=== PATIENT | male | born 1965 | race Caucasian/White ===

== ENCOUNTER 2020-10-15 02:56 | Inpatient (IN) | payer BC, OTHER ==
[2020-10-15] VITALS (7 sets, daily range): BP systolic 143–173; BP diastolic 81–102
[~2020-10-15] VITALS: Ht 182.9 cm; Wt 120.2 kg
--- NOTE | 2020-10-15 03:28 | NUR ---
both IVs were placed at an outside hospital
[2020-10-15] MEDS ORDERED: SODIUM CHLORIDE FLUSH 10ML SYR IVF ONE (03:30)
[2020-10-15 03:35] LABS: BASOPHILS % (AUTO) 1 % (0-1); EOSINOPHILS % (AUTO) 7 % (1-7); LYMPHOCYTES % (AUTO) 27 % (22-44); MEAN CORPUSCULAR HEMOGLOBIN 31.2 pg (27.5-34.5); MEAN CORPUSCULAR HGB CONC 35.5 g/dL (33.2-36.2); MEAN PLATELET VOLUME 8.5 fL (7.4-10.4); MONOCYTES % (AUTO) 8 % (2-9); NEUTROPHILS % (AUTO) 57 % (42-75); PLATELET COUNT 174 x10^3/uL (130-400); RED BLOOD COUNT 5.11 x10^6/uL (4.38-5.82); RED CELL DISTRIBUTION WIDTH 14.2 % (9.4-14.8)
[2020-10-15 03:42] LABS: ALBUMIN 3.5 g/dL (3.4-5.0); ANION GAP 5 mmol/L (5-15); CALCIUM 9.1 mg/dL (8.5-10.1); CHLORIDE 103 mmol/L (98-107); CREATININE 0.86 mg/dL (0.7-1.3)
[2020-10-15 03:44] LABS: INTERNATIONAL NORMALIZED RATIO 0.97 (0.93-1.1); PROTHROMBIN TIME 10.4 Seconds (9.6-11.5)
[2020-10-15] MEDS ORDERED: ONDANSETRON 2MG/ML, 2ML IVPush PRN (04:30)
[2020-10-15] MEDS ORDERED: SODIUM CHLORIDE 0.9% 1,000 ML IV SCH (04:30)
[2020-10-15] MEDS ORDERED: ACETAMINOPHEN 325 MG TABLET PO PRN (04:30)
[2020-10-15] MEDS ORDERED: DOCUSATE 100 MG CAPSULE PO PRN (04:30)
[2020-10-15] MEDS ORDERED: morphine SULFATE 10 MG/ML, 1ML IVPush PRN (04:30)
[2020-10-15] MEDS ORDERED: OXYcodone IR 5MG TABLET PO PRN (04:30)
[2020-10-15] MEDS ORDERED: ZOLPIDEM 5MG TABLET PO PRN (04:30)
[2020-10-15] MEDS ORDERED: GUAIFENESIN/DM 200-20MG, 10ML UDC PO PRN (04:30)
[2020-10-15] MEDS ORDERED: ENALAPRILAT 1.25 MG/ML, 2ML IVPush PRN (04:30)
[2020-10-15] MEDS ORDERED: METHOCARBAMOL 500 MG TABLET PO PRN (04:30)
[2020-10-15] MEDS: ASPIRIN 81 MG TABLET EC PO SCH (05:23)
[2020-10-15 07:28] LABS: CHOL/HDL RATIO 3.2; LDL/HDL RATIO 1.7 (0.5-3.0)
[2020-10-15] MEDS: ALLOPURINOL 100 MG TABLET PO SCH (08:36)
[2020-10-15] MEDS: CLOPIDOGREL 75 MG TABLET PO SCH (08:36)
[2020-10-15] MEDS: metFORMIN 500 MG TABLET PO SCH ×2 (08:36→17:00)
[2020-10-15] MEDS: INSULIN REGULAR 100 UNITS/ML, 3ML VIAL SQ-INSULIN SCH ×4 (08:38→20:02)
[2020-10-15] MEDS: INSULIN GLARGINE 100 UNITS/ML, PEN SQ-INSULIN SCH ×2 (08:38→20:02)
[2020-10-15] MEDS ORDERED: GADOTERATE 10 MMOL/20ML SYR ONE (16:29)
[2020-10-15] MEDS ORDERED: ATORVASTATIN 80 MG TABLET PO SCH (21:00)
[2020-10-16 00:18] VITALS: BP 163/89
[2020-10-16 04:00] VITALS: BP 158/86
[2020-10-16] MEDS: ASPIRIN 81 MG TABLET EC PO SCH (05:22)
[2020-10-16 06:21] LABS: CHLORIDE 106 mmol/L (98-107)
[2020-10-16 06:22] LABS: BASOPHILS % (AUTO) 1 % (0-1); EOSINOPHILS % (AUTO) 6 % (1-7); LYMPHOCYTES % (AUTO) 27 % (22-44); MEAN CORPUSCULAR HEMOGLOBIN 30.9 pg (27.5-34.5); MEAN CORPUSCULAR HGB CONC 35.1 g/dL (33.2-36.2); MEAN PLATELET VOLUME 8.6 fL (7.4-10.4); MONOCYTES % (AUTO) 7 % (2-9); NEUTROPHILS % (AUTO) 59 % (42-75); PLATELET COUNT 191 x10^3/uL (130-400); RED BLOOD COUNT 5.14 x10^6/uL (4.38-5.82); RED CELL DISTRIBUTION WIDTH 14.3 % (9.4-14.8)
[2020-10-16 06:24] LABS: ANION GAP 8 mmol/L (5-15); CREATININE 0.77 mg/dL (0.7-1.3)
[2020-10-16] MEDS: INSULIN REGULAR 100 UNITS/ML, 3ML VIAL SQ-INSULIN SCH ×3 (07:45→16:05)
[2020-10-16] MEDS: metFORMIN 500 MG TABLET PO SCH ×2 (07:57→16:05)
[2020-10-16] MEDS: CLOPIDOGREL 75 MG TABLET PO SCH (07:57)
[2020-10-16] MEDS: ALLOPURINOL 100 MG TABLET PO SCH (07:57)
[2020-10-16] MEDS: INSULIN GLARGINE 100 UNITS/ML, PEN SQ-INSULIN SCH (07:58)
[2020-10-16 08:14] VITALS: BP 148/91
[2020-10-16] MEDS ORDERED: ATENOLOL 25 MG TABLET PO SCH (10:00)
[2020-10-16] MEDS ORDERED: LISINOPRIL 10 MG TABLET PO SCH (10:00)
[2020-10-16] MEDS ORDERED: OMNIPAQUE 350 MG/ML, 75ML BOTTLE ONE (10:20)
[2020-10-16] MEDS ORDERED: SITA100T PO (12:17)
[2020-10-16] MEDS ORDERED: ATOR40TA78 PO (12:17)
[2020-10-16] MEDS ORDERED: LISI20TA21 PO (12:17)
[2020-10-16] MEDS ORDERED: ATEN25TA PO (12:17)
[2020-10-16] MEDS ORDERED: ALLO300T PO (12:17)
[2020-10-16] MEDS ORDERED: INSU300I SQ-INSULIN (12:17)
[2020-10-16] MEDS ORDERED: METF10007 PO (12:17)
[2020-10-16 12:22] VITALS: BP 154/91
[2020-10-16] MEDS ORDERED: ATOR-2 PO (12:30)
[2020-10-16] MEDS ORDERED: ASPI81TA45 PO (12:30)
[2020-10-16 16:06] VITALS: BP 150/87
== END 2020-10-16 17:56 | disposition home or self-care (01) | DRG 66 ==
LOC: ED 03:53 → EDIP 04:12 → 4EST 05:00
PROVIDERS: ADMIT Internal Medicine; ATTEND Hospitalist
DX: I63.9 Cerebral infarction, unspecified (principal); E66.9 Obesity, unspecified; Z68.35 Body mass index [BMI] 35.0-35.9, adult; E11.65 Type 2 diabetes mellitus with hyperglycemia; E78.5 Hyperlipidemia, unspecified; I10 Essential (primary) hypertension; M10.9 Gout, unspecified; Z79.4 Long term (current) use of insulin; Z82.3 Family history of stroke; R29.701 NIHSS score 1; R20.2 Paresthesia of skin
CPT/HCPCS: 36415; C8929; 70496; 70553; 80048; 80061; 82040; 82962; 83036; 83735; 84100; 85025; 85610; 85730; 93005; 93880; 96374; G0378; J1815; Q9957; Q9967; A9575; J7030